=== PATIENT | male | born 1995 | race Caucasian/White ===

== ENCOUNTER 2018-03-29 10:39 | Emergency (ER) | payer SELFPAY ==
[~2018-03-29] VITALS: Ht 175.3 cm; Wt 91.8 kg
[2018-03-29 10:43] VITALS: Ht 175.3 cm; Wt 91.8 kg
[2018-03-29 13:01] VITALS: BP 129/88
== END 2018-03-29 13:01 | disposition home or self-care (01) ==
LOC: ED 10:39
DX: S90.111A Contusion of right great toe without damage to nail, initial encounter (principal); W22.8XXA Striking against or struck by other objects, initial encounter; Y93.89 Activity, other specified; Y92.89 Other specified places as the place of occurrence of the external cause; Y99.8 Other external cause status
CPT/HCPCS: 90715; 99406; Q0092